=== PATIENT | male | born 1995 | race Caucasian/White ===

== ENCOUNTER 2016-11-20 21:24 | Emergency (ER) | payer OTHER ==
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
[2016-11-20 21:46] LABS: BASOPHIL % 0.3 %; HEMATOCRIT 43.6 % (37.0-53.0); IMMATURE GRANULOCYTE # 0.1 K/uL (0.0-0.3); IMMATURE GRANULOCYTE % 0.8 %; LYMPHOCYTE # 0.8 K/uL (0.8-4.0); LYMPHOCYTE % 5.6 %; MCH 31.7 pg (27.0-34.0); MCHC 36.7 gm/dL (32.0-36.5); MCV 86.3 fl (83.0-98.0); MONOCYTE # 0.5 K/uL (0.0-1.0); MONOCYTE % 3.6 %; MPV 9.8 fl (9.4-12.4); NEUTROPHIL # (ANC) 12.9 K/uL (1.4-9.0); NEUTROPHIL % 89.7 %; NRBC % 0 /100WBC (0-0.00); PLATELET COUNT 191 K/uL (150-450); RBC 5.05 M/uL (4.00-6.00); RDW-CV 12.5 % (11.9-14.6); WBC 14.4 K/uL (4.0-11.0)
[2016-11-20 22:03] LABS: ALBUMIN 4.5 gm/dL (3.5-5.0); ALK PHOS 67 IU/L (33-138); ALT 44 IU/L (12-78); AST 44 IU/L (10-40); BLOOD UREA NITROGEN 21 mg/dL (6-24); CALCIUM 8.9 mg/dL (8.5-10.5); CHLORIDE 104 mMol/L (96-110); CO2 24 mMol/L (22-32); CREATININE 1.2 mg/dL (0.6-1.3); SODIUM 140 mMol/L (135-145); TOTAL BILIRUBIN 0.8 mg/dL (0.0-1.5)
== END 2016-11-20 22:31 | disposition disaster alternative care site (69) ==
LOC: GMED 21:24
PROVIDERS: Nurse Practitioner Family
DX: F10.129 Alcohol abuse with intoxication, unspecified (principal); F90.9 Attention-deficit hyperactivity disorder, unspecified type; Y90.6 Blood alcohol level of 120-199 mg/100 ml
CPT/HCPCS: G0480; J2405; J7030

== ENCOUNTER → 2016-11-20 | Outpatient (CLI) | payer OTHER | END | disposition disaster alternative care site (69) | LOC: GAMB 21:12 | DX: F10.129 Alcohol abuse with intoxication, unspecified (principal) | CPT/HCPCS: A0425; A0427 ==